=== PATIENT | female | born 1935 | race Caucasian/White ===

== ENCOUNTER 2017-04-17 20:30 | Emergency (ER) | payer MEDICARE, OTHER ==
[~2017-04-17] VITALS: Ht 152.4 cm; Wt 58.1 kg
[~2017-04-17 20:30] MED LIST: FOSAMAX PO; LEVO88TA2 PO; OMEP20CA10 PO; SUMA100T PO
--- NOTE | 2017-04-17 21:16 | NUR ---
Pt ambulated to room with steady gait. Pt c/o right side headache since this morning. Pt seen by Dr. Leonard. Pt medicated for discomfort, will monitor for effects of medication. Pt resting in position of comfort for self. Pt to be discharge home once son arrives.
--- NOTE | 2017-04-17 21:55 | NUR ---
Pt sts no change in pain from previous medication. Dr. Leonard notified. Per Dr. Leonard pt to not received any more narcotics.
--- NOTE | 2017-04-17 22:09 | NUR ---
Pt conts to c/o pain. Dr. Leonard aware. No new orders given. Pt stable for discharge per MD. Pt and family given ACI. Both verbalized understanding of dc instructions. Pt wheeled out of ER via w/c
[2017-04-17 22:15] VITALS: BP 110/59
== END 2017-04-17 22:15 | disposition home or self-care (01) ==
LOC: ER 20:41
DX: G43.909 Migraine, unspecified, not intractable, without status migrainosus (principal); K21.9 Gastro-esophageal reflux disease without esophagitis; Z88.6 Allergy status to analgesic agent
CPT/HCPCS: A4663; J1170; J2550; Q0163

== ENCOUNTER 2017-04-21 20:14 | Emergency (ER) | payer MEDICARE, OTHER ==
[~2017-04-21] VITALS: Ht 167.6 cm; Wt 58.1 kg
[2017-04-21 20:57] LABS: BASOPHILS % (AUTO) 0.1 % (0.0-2.0); EOSINOPHILS % (AUTO) 0.2 % (0.0-7.0); HEMATOCRIT 39.9 % (37-47); HEMOGLOBIN 13.3 G/DL (12.0-16.0); LYMPHOCYTES # (AUTO) 1.1 K/UL (0.8-4.8); LYMPHOCYTES % (AUTO) 19.3 % (20.5-51.5); MEAN CORPUSCULAR HEMOGLOBIN 29.6 UUG (27.0-31.0); MEAN CORPUSCULAR HGB CONC 33 g/dL (32.0-37.0); MEAN CORPUSCULAR VOLUME 88.6 FL (81.0-99.0); MONOCYTES # (AUTO) 0.2 K/UL (0.1-1.30); MONOCYTES % (AUTO) 3.4 % (0.0-11.0); NEUTROPHILS # (AUTO) 4.2 K/UL (1.8-8.9); PLATELET COUNT (AUTO) 191 K/UL (150-450); WHITE BLOOD COUNT (AUTO) 5.5 K/UL (4.0-11.2)
[2017-04-21 21:02] LABS: ALANINE AMINOTRANSFERASE 20 U/L (14-59); ALKALINE PHOSPHATASE 64 U/L (50-136); ASPARTATE AMINOTRANSFERASE 12 U/L (15-37); BILIRUBIN,DIRECT 0.1 mg/dL (0.0-0.2); BILIRUBIN,TOTAL 0.4 mg/dL (0.2-1.0); CARBON DIOXIDE 27 mmol/L (21-32); CHLORIDE 108 mmol/L (98-107); GLUCOSE 127 mg/dL (74-106); LIPASE 142 U/L (73-393); UREA NITROGEN, BLOOD 19 mg/dL (7-18)
--- NOTE | 2017-04-21 21:25 | NUR ---
Patient provided urine specimen, sent to laboratory. However, patient states she feels improved and would like to go home. BHUMID notified.
[2017-04-21 21:31] VITALS: BP 118/72
--- NOTE | 2017-04-21 21:31 | NUR ---
Patient discharged to home in stable conditon. Written and verbal after care instructions given. Patient verbalizes understanding of instructions.
== END 2017-04-21 21:32 | disposition home or self-care (01) ==
LOC: ER 20:14
DX: K52.9 Noninfective gastroenteritis and colitis, unspecified (principal); G43.909 Migraine, unspecified, not intractable, without status migrainosus; K21.9 Gastro-esophageal reflux disease without esophagitis; Z88.6 Allergy status to analgesic agent
CPT/HCPCS: 36415; 83690; 85025; A4663; J1170; J2405; J7030

== ENCOUNTER 2017-07-07 10:49 | Emergency (ER) | payer MEDICARE, OTHER ==
[~2017-07-07] VITALS: Ht 167.6 cm; Wt 56.7 kg
[2017-07-07] MEDS ORDERED: SIMV20TA2 PO (11:00)
[2017-07-07 11:46] LABS: BASOPHILS % (AUTO) 0.3 % (0.0-2.0); EOSINOPHILS % (AUTO) 0.4 % (0.0-7.0); HEMATOCRIT 37.1 % (31.2-41.9); HEMOGLOBIN 12.9 g/dL (10.9-14.3); LYMPHOCYTES # (AUTO) 1.8 K/uL (20.0-40.0); LYMPHOCYTES % (AUTO) 27.9 % (20.5-51.5); MEAN CORPUSCULAR HEMOGLOBIN 30.9 uug (24.7-32.8); MEAN CORPUSCULAR HGB CONC 35 g/dL (32.3-35.6); MEAN CORPUSCULAR VOLUME 88.9 fL (75.5-95.3); MONOCYTES # (AUTO) 0.4 K/uL (2.0-10.0); MONOCYTES % (AUTO) 6.5 % (0.0-11.0); NEUTROPHILS # (AUTO) 4.1 K/uL (1.8-8.9); NEUTROPHILS % (AUTO) 64.9 % (38.5-71.5); PLATELET COUNT (AUTO) 184 K/uL (179-408); RED BLOOD CELL COUNT(AUTO) 4.17 MIL/uL (3.63-4.92); WHITE BLOOD COUNT (AUTO) 6.3 K/uL (3.8-11.8)
[2017-07-07 12:01] LABS: CARBON DIOXIDE 28 mmol/L (21-32); CHLORIDE 108 mmol/L (98-107); GLUCOSE 93 mg/dL (74-106); POTASSIUM 4.1 mmol/L (3.5-5.1); UREA NITROGEN, BLOOD 24 mg/dL (7-18)
[2017-07-07 12:13] LABS: ALANINE AMINOTRANSFERASE 20 U/L (14-59); ALKALINE PHOSPHATASE 119 U/L (50-136); ASPARTATE AMINOTRANSFERASE 21 U/L (15-37); BILIRUBIN,DIRECT 0.1 mg/dL (0.0-0.2); BILIRUBIN,TOTAL 0.3 mg/dL (0.2-1.0); TOTAL PROTEIN, SERUM 6.5 g/dL (6.4-8.2)
[2017-07-07 12:37] VITALS: BP 114/60
--- NOTE | 2017-07-07 12:37 | NUR ---
Patient discharged to home in stable conditon. Written and verbal after care instructions given. Patient verbalizes understanding of instructions.
== END 2017-07-07 12:38 | disposition home or self-care (01) ==
LOC: ER 10:49
DX: J20.9 Acute bronchitis, unspecified (principal); K21.9 Gastro-esophageal reflux disease without esophagitis; Z88.6 Allergy status to analgesic agent
CPT/HCPCS: 36415; 71010; 80048; 80076; 83605; 83880; 84484; 85025; 85730; 87040 ×2; 87400; 93005; 99285; A4663; 70030-TC

== ENCOUNTER 2017-10-27 13:06 | Emergency (ER) | payer MEDICARE, OTHER ==
[~2017-10-27] VITALS: Ht 162.6 cm; Wt 58.5 kg
[~2017-10-27 13:06] MED LIST changes: +SIMV20TA2 PO
[2017-10-27] MEDS ORDERED: diphenhydrAMINE 50 MG/1 ML VIAL IM ONE (13:30)
[2017-10-27] MEDS ORDERED: PROCHLORPERAZINE EDISYLATE 10 MG/2 ML VIAL IM ONE ×3 (13:30→15:15)
[2017-10-27] MEDS ORDERED: diphenhydrAMINE 50 MG/1 ML VIAL ONE (13:33)
[2017-10-27] MEDS ORDERED: PROCHLORPERAZINE EDISYLATE 10 MG/2 ML VIAL ONE ×3 (13:33→15:19)
--- NOTE | 2017-10-27 15:20 | NUR ---
Patient discharged to home in stable conditon. Written and verbal after care instructions given. Patient verbalizes understanding of instructions.PT SAYS HEADACHE HAS COME DOWN TO TOLERABLE LEVEL OF 3/10. PT WANTS TO GO HOME. SISTER IS COMING TO CLAIMS EXAMINER THE PT.PT WALKS IN STEADY GAIT.
[2017-10-27 15:23] VITALS: BP 109/51
== END 2017-10-27 15:24 | disposition home or self-care (01) ==
LOC: ER 13:07
DX: G43.909 Migraine, unspecified, not intractable, without status migrainosus (principal); K21.9 Gastro-esophageal reflux disease without esophagitis; Z90.710 Acquired absence of both cervix and uterus; Z88.6 Allergy status to analgesic agent; Z79.899 Other long term (current) drug therapy
CPT/HCPCS: A4663; J0780; J1200

== ENCOUNTER 2019-02-23 17:58 | Emergency (ER) | payer MEDICARE, OTHER ==
[~2019-02-23] VITALS: Ht 167.6 cm; Wt 59.9 kg
[~2019-02-23 17:58] MED LIST changes: -OMEP20CA10 PO; +OMEP20CA11 PO
--- NOTE | 2019-02-23 18:38 | NUR ---
Dr. Villarreal at the bedside for MSE.
[2019-02-23] MEDS ORDERED: diphenhydrAMINE 25 MG CAP PO ONE ×2 (18:45→18:51)
[2019-02-23] MEDS ORDERED: TDAP DIPH,PERTUSS,TET VAC/PF 0.5 ML DISP.SYRIN IM ONE ×2 (18:45→18:52)
[2019-02-23] MEDS ORDERED: SULFAMETH/TRIMETH 800/160 MG TABLET PO ONE (18:45)
[2019-02-23] MEDS ORDERED: SULFAMETH/TRIMETH 800/160 MG TABLET ONE (18:51)
--- NOTE | 2019-02-23 19:01 | NUR ---
Full SBAR report given to WILL Gore.
--- NOTE | 2019-02-23 19:13 | NUR ---
Patient discharged to home in stable conditon. Written and verbal after care instructions given. Patient verbalizes understanding of instructions. Pt ambulated out of ER with steady gait, no acute signs of distress, VSS, all belongings taken.
[2019-02-23 19:15] VITALS: BP 128/68
== END 2019-02-23 19:16 | disposition home or self-care (01) ==
LOC: ER 18:01
DX: S60.862A Insect bite (nonvenomous) of left wrist, initial encounter (principal); E78.00 Pure hypercholesterolemia, unspecified; K21.9 Gastro-esophageal reflux disease without esophagitis; F32.9 Major depressive disorder, single episode, unspecified; Z90.710 Acquired absence of both cervix and uterus; Z88.8 Allergy status to other drugs, medicaments and biological substances; Z79.899 Other long term (current) drug therapy; W57.XXXA Bitten or stung by nonvenomous insect and other nonvenomous arthropods, initial encounter; Y93.89 Activity, other specified; Y92.89 Other specified places as the place of occurrence of the external cause; Y99.8 Other external cause status
CPT/HCPCS: 90471; 90715; 99283; Q0163; A4663

== ENCOUNTER 2019-04-15 11:02 | Emergency (ER) | payer MEDICARE, OTHER ==
[~2019-04-15] VITALS: Ht 167.6 cm; Wt 61.2 kg
[2019-04-15] MEDS: IV NORMAL SALINE 1000 ML BAG IV ONE (12:30)
[2019-04-15 13:00] LABS: *BILIRUBIN,URIN NEGATIVE (NEGATIVE); *CLARITY,URINE CLEAR (CLEAR); *COLOR,URINE YELLOW (YELLOW); *KETONES,URINE NEGATIVE (NEGATIVE); *UROBILINOGEN,URINE 0.2 E.U./dl (NORMAL); LEUKOCYTE ESTERASE ,URINE TRACE (NEGATIVE); NITRITE, URINE NEGATIVE (NEGATIVE); PH,URINE 7.5 (5.0-8.0); UGLUCOSE NEGATIVE (NEGATIVE)
[2019-04-15 13:03] LABS: POTASSIUM 4.1 mmol/L (3.5-5.1)
[2019-04-15 13:08] LABS: BILIRUBIN,DIRECT 0.1 mg/dL (0.0-0.2); BILIRUBIN,TOTAL 0.4 mg/dL (0.2-1.0); TOTAL PROTEIN, SERUM 6.8 g/dL (6.4-8.2)
[2019-04-15 13:10] LABS: BASOPHILS % (AUTO) 0.3 % (0.0-2.0); EOSINOPHILS # (AUTO) 0.1 K/uL (0.0-0.7); EOSINOPHILS % (AUTO) 1.3 % (0.0-7.0); HEMATOCRIT 41.4 % (31.2-41.9); HEMOGLOBIN 13.9 g/dL (10.9-14.3); LYMPHOCYTES # (AUTO) 2.2 K/uL (20.0-40.0); LYMPHOCYTES % (AUTO) 41.4 % (20.5-51.5); MEAN CORPUSCULAR HEMOGLOBIN 30.7 uug (24.7-32.8); MEAN CORPUSCULAR HGB CONC 34 g/dL (32.3-35.6); MEAN CORPUSCULAR VOLUME 91.6 fL (75.5-95.3); MONOCYTES # (AUTO) 0.4 K/uL (2.0-10.0); NEUTROPHILS # (AUTO) 2.6 K/uL (1.8-8.9); PLATELET COUNT (AUTO) 191 K/uL (179-408); RED BLOOD CELL COUNT(AUTO) 4.52 MIL/uL (3.63-4.92); WHITE BLOOD COUNT (AUTO) 5.3 K/uL (3.8-11.8)
[2019-04-15 13:24] LABS: *BLOOD, URINE SMALL (NEGATIVE); RBC,URINE 0-3 /HPF (0-3)
[2019-04-15 13:25] LABS: BACTERIA,URINE FEW /HPF (NONE SEEN); SQUAMOUS EPITHELIAL CELL,UR FEW /HPF (NONE SEEN)
[2019-04-15] MEDS ORDERED: DIATR MEGLU/DIATRIZOATE SODIUM 30 ML SOLUTION ONE (13:59)
--- NOTE | 2019-04-15 14:15 | NUR ---
Patient provided with instructions for oral contrast to be taken within 60 minutes.
[2019-04-15] MEDS: DIATR MEGLU/DIATRIZOATE SODIUM 120 ML BOTTLE PO ONE (15:00)
[2019-04-15] MEDS ORDERED: SWABABLE VALVE TRANSFER SET EA MC ONE (15:34)
[2019-04-15] MEDS ORDERED: IOHEXOL 300MG/ML 100 ML INFUS..BTL ONE (15:34)
[2019-04-15] MEDS ORDERED: IV NORMAL SALINE 250 ML IV ONE (15:34)
[2019-04-15 17:10] VITALS: BP 135/65
== END 2019-04-15 17:12 | disposition home or self-care (01) ==
LOC: ER 11:02
DX: R10.13 Epigastric pain (principal); R42 Dizziness and giddiness; R00.2 Palpitations; E78.00 Pure hypercholesterolemia, unspecified; F32.9 Major depressive disorder, single episode, unspecified; Z90.710 Acquired absence of both cervix and uterus; Z88.8 Allergy status to other drugs, medicaments and biological substances; Z79.899 Other long term (current) drug therapy
CPT/HCPCS: 36415; 71045; 74177; 80048; 80076; 81000; 81001; 83690; 84484; 85025; 85730; 87086; 96360; 96361; 99284; Q9963; Q9967; 70030-TC; A4663; J7030; J7050

== ENCOUNTER 2019-12-21 17:54 | Emergency (ER) | payer MEDICARE, OTHER ==
[~2019-12-21] VITALS: Ht 165.1 cm; Wt 61.2 kg
[~2019-12-21 17:54] MED LIST changes: -FOSAMAX PO; -OMEP20CA11 PO; +OMEP20CA15 PO
--- NOTE | 2019-12-21 18:33 | NUR ---
DR SHAVER AT BEDSIDE FOR EVAL. PATIENT IS A/A/O X3 IN NO DISTRESS.
[2019-12-21] MEDS ORDERED: ONDANSETRON ODT 4 MG TAB.RAPDIS ONE (18:55)
[2019-12-21] MEDS ORDERED: HYDROMORPHONE HCL 2 MG TABLET ONE (18:56)
--- NOTE | 2019-12-21 18:56 | NUR ---
HAND OFF REPORT TO LAURYN SOLIS
[2019-12-21] MEDS ORDERED: HYDROMORPHONE HCL 2 MG TABLET PO ONE (19:00)
[2019-12-21] MEDS ORDERED: ONDANSETRON ODT 4 MG TAB.RAPDIS SL ONE (19:00)
[2019-12-21] MEDS ORDERED: DEXAMETHASONE SOD PHOSPHATE 10 MG INJ ONE (19:07)
--- NOTE | 2019-12-21 19:12 | NUR ---
INSTRUCTED PATIENT NOT TO DRIVE AND [employer] (RX)
--- NOTE | 2019-12-21 19:12 | NUR ---
DC, RX AND F/U INSTRUCTIONS GIVEN AND EXPLAINED TO PATIENT WHO STATES SHE UNDERSTANDS ALL INSTRUCTIONS. [employer] UT[employer]ED (KELLY CRUZ)
[2019-12-21] MEDS ORDERED: DEXAMETHASONE SOD PHOSPHATE 4 MG INJ IM ONE (19:15)
== END 2019-12-21 19:13 | disposition home or self-care (01) ==
LOC: ER 17:54
DX: G43.909 Migraine, unspecified, not intractable, without status migrainosus (principal); Z90.710 Acquired absence of both cervix and uterus; E78.00 Pure hypercholesterolemia, unspecified; Z79.899 Other long term (current) drug therapy
CPT/HCPCS: 96372; 99283; J1100; A4663; Q0162

== ENCOUNTER 2021-01-30 21:28 | Emergency (ER) | payer MEDICARE, OTHER ==
[~2021-01-30] VITALS: Ht 165.1 cm; Wt 62.1 kg
--- NOTE | 2021-01-30 21:45 | NUR ---
Pt came from home, bib son for headache, sob, nausea for past 10 days. Pt had a fall 2 months ago, has broken L clavicle and rib fracture.
[2021-01-30 22:23] LABS: HEMATOCRIT 41.8 % (31.2-41.9); MEAN CORPUSCULAR HEMOGLOBIN 30.4 uug (24.7-32.8); MEAN CORPUSCULAR VOLUME 90.4 fL (75.5-95.3); PLATELET COUNT (AUTO) 204 K/uL (179-408)
--- NOTE | 2021-01-30 22:25 | NUR ---
Pt. reports she has headache, dizziness and her son reports her balance has been impaired. Fall precautions in place, vss. Will continue to monitor. Dr. Garner made aware.
[2021-01-30 22:28] LABS: CREATININE 1.1 mg/dL (0.6-1.3); POTASSIUM 3.4 mmol/L (3.5-5.1)
[2021-01-30] MEDS ORDERED: METOCLOPRAMIDE HCL 10 MG/2 ML VIAL IV ONE (22:30)
[2021-01-30 22:40] LABS: BILIRUBIN,DIRECT 0.1 mg/dL (0.0-0.2); BILIRUBIN,TOTAL 0.4 mg/dL (0.2-1.0); TOTAL PROTEIN, SERUM 7.1 g/dL (6.4-8.2)
[2021-01-30] MEDS ORDERED: METOCLOPRAMIDE HCL 10 MG/2 ML VIAL ONE (22:57)
--- NOTE | 2021-01-30 23:34 | NUR ---
Pt taken to CT
--- NOTE | 2021-01-30 23:45 | NUR ---
pt returned from ct
[2021-01-31] MEDS ORDERED: MORPHINE SULFATE 4 MG/1 ML DISP.SYRIN IV ONE (00:30)
[2021-01-31 00:36] LABS: *BILIRUBIN,URIN NEGATIVE (NEGATIVE); *CLARITY,URINE CLEAR (CLEAR); *COLOR,URINE YELLOW (YELLOW); *KETONES,URINE NEGATIVE (NEGATIVE); *UROBILINOGEN,URINE 0.2 E.U./dl (NORMAL); LEUKOCYTE ESTERASE ,URINE 2+ (NEGATIVE); NITRITE, URINE NEGATIVE (NEGATIVE); UGLUCOSE NEGATIVE (NEGATIVE)
[2021-01-31 00:37] LABS: *BLOOD, URINE TRACE (NEGATIVE)
[2021-01-31] MEDS ORDERED: MORPHINE SULFATE 4 MG/1 ML DISP.SYRIN ONE (00:40)
[2021-01-31 00:42] LABS: BACTERIA,URINE FEW /HPF (NONE SEEN); RBC,URINE 0-3 /HPF (0-3); SQUAMOUS EPITHELIAL CELL,UR MODERATE /HPF (NONE SEEN)
[2021-01-31] MEDS ORDERED: METOCLOPRAMIDE HCL 10 MG/2 ML VIAL IV ONE (01:45)
[2021-01-31] MEDS ORDERED: HYDROMORPHONE 1 MG/1 ML DISP.SYRIN IV ONE (01:45)
[2021-01-31] MEDS ORDERED: HYDROMORPHONE 1 MG/1 ML DISP.SYRIN ONE (01:51)
[2021-01-31] MEDS ORDERED: METOCLOPRAMIDE HCL 10 MG/2 ML VIAL ONE (01:52)
--- NOTE | 2021-01-31 02:05 | NUR ---
Patient discharged to home in stable condition. Written and verbal after care instructions given. Patient verbalizes understanding of instructions. Stressed follow up or return to ER for worsening s/s. Pt driven home by her son. Pt walks with steady gait. Denies dizziness, vision changes. No signs of distress, vss. All belongings taken, provided with copies of lab and CT results, IV site discontinued.
[2021-01-31 02:09] LABS: *BILIRUBIN,URIN NEGATIVE (NEGATIVE); *CLARITY,URINE CLEAR (CLEAR); *KETONES,URINE NEGATIVE (NEGATIVE); *UROBILINOGEN,URINE 0.2 E.U./dl (NORMAL); LEUKOCYTE ESTERASE ,URINE 2+ (NEGATIVE); NITRITE, URINE NEGATIVE (NEGATIVE); UGLUCOSE NEGATIVE (NEGATIVE)
[2021-01-31 02:13] VITALS: BP 15/85
[2021-01-31 02:14] LABS: *BLOOD, URINE TRACE (NEGATIVE); *COLOR,URINE STRAW (YELLOW)
[2021-01-31 02:16] LABS: BACTERIA,URINE FEW /HPF (NONE SEEN); RBC,URINE 0-3 /HPF (0-3); SQUAMOUS EPITHELIAL CELL,UR MODERATE /HPF (NONE SEEN)
== END 2021-01-31 02:14 | disposition home or self-care (01) ==
LOC: ER 21:29
DX: G43.909 Migraine, unspecified, not intractable, without status migrainosus (principal); Z90.710 Acquired absence of both cervix and uterus; E78.00 Pure hypercholesterolemia, unspecified; E03.9 Hypothyroidism, unspecified; Z79.899 Other long term (current) drug therapy; Z79.890 Hormone replacement therapy
CPT/HCPCS: 36415; 70450; 71045; 80048; 80076; 81001; 83880; 84484; 85025; 87086; 93005; 96374; 96375; 96376; 99285; J1170; J2270; J2765 ×2; 70030-TC; A4663

== ENCOUNTER 2021-09-13 19:13 | Emergency (ER) | payer MEDICARE, OTHER ==
[~2021-09-13] VITALS: Ht 165.1 cm; Wt 63.5 kg
[2021-09-13] MEDS ORDERED: ONDANSETRON ODT 4 MG TAB.RAPDIS SL ONE (20:00)
[2021-09-13] MEDS ORDERED: HYDROMORPHONE 1 MG/1 ML DISP.SYRIN IM ONE ×2 (20:00→21:15)
[2021-09-13] MEDS ORDERED: HYDROMORPHONE 1 MG/1 ML DISP.SYRIN ONE ×2 (20:19→21:28)
[2021-09-13] MEDS ORDERED: ONDANSETRON ODT 4 MG TAB.RAPDIS ONE (20:19)
[2021-09-13] MEDS ORDERED: ONDA4TAB5 PO (22:01)
[2021-09-13] MEDS ORDERED: HYDR-3980 PO (22:01)
--- NOTE | 2021-09-13 23:10 | NUR ---
Patient discharged to home in stable condition. Written and verbal after care instructions given. Patient verbalizes understanding of instructions. Stressed follow up or return to ER for worsening s/s.pt ambulates with steady gait. no sob. no chest pain. accompanied by son.
[2021-09-13 23:11] VITALS: BP 111/52
[2021-09-13] MEDS ORDERED: OXYCODONE/APAP 5-325 MG TABLET ONE (23:14)
[2021-09-13] MEDS ORDERED: OXYCODONE/APAP 5-325 MG TABLET PO ONE (23:15)
== END 2021-09-13 23:13 | disposition home or self-care (01) ==
LOC: ER 19:14
DX: G43.909 Migraine, unspecified, not intractable, without status migrainosus (principal); E03.9 Hypothyroidism, unspecified; Z90.710 Acquired absence of both cervix and uterus; Z79.890 Hormone replacement therapy; K29.70 Gastritis, unspecified, without bleeding; Z79.899 Other long term (current) drug therapy
CPT/HCPCS: 96372 ×2; 99284; J1170 ×2; A4663; Q0162

== ENCOUNTER 2021-10-19 23:25 | Emergency (ER) | payer MEDICARE, OTHER ==
[~2021-10-19] VITALS: Ht 165.1 cm; Wt 63.5 kg
[~2021-10-19 23:25] MED LIST changes: +HYDR-3980 PO; +ONDA4TAB5 PO
--- NOTE | 2021-10-20 00:08 | NUR ---
CALLED [facility] TO [facility] PATIENT TO [place] [facility] SCAN DUE TO CT SCAN [facility] AT [place]. ETA IS 60MINS.
[2021-10-20] MEDS ORDERED: PIPERACILLIN SODIUM/TAZOBACTAM 3.375 G in IV DEXTROSE 5% 50 ML IV ONE (00:15)
[2021-10-20] MEDS ORDERED: MORPHINE SULFATE 2 MG/1 ML DISP.SYRIN IV ONE (00:15)
[2021-10-20] MEDS ORDERED: IV NS 1000 ML 1,000 ML IV ONE (00:15)
[2021-10-20 00:22] LABS: HEMATOCRIT 41.5 % (31.2-41.9); MEAN CORPUSCULAR HEMOGLOBIN 30.5 uug (24.7-32.8); MEAN CORPUSCULAR VOLUME 87.9 fL (75.5-95.3); PLATELET COUNT (AUTO) 200 K/uL (179-408)
[2021-10-20 00:39] LABS: CARBON DIOXIDE 27 mmol/L (21-32); CHLORIDE 105 mmol/L (98-107); GLUCOSE 105 mg/dL (74-106); POTASSIUM 3.6 mmol/L (3.5-5.1); UREA NITROGEN, BLOOD 18 mg/dL (7-18)
[2021-10-20] MEDS ORDERED: MORPHINE SULFATE 2 MG/1 ML DISP.SYRIN ONE (00:43)
[2021-10-20] MEDS ORDERED: PIPERACILLIN/TAZOBACTAM/D5W 50 ML IV ONE (00:43)
[2021-10-20 00:45] LABS: *BILIRUBIN,URIN NEGATIVE (NEGATIVE); *BLOOD, URINE 2+ (NEGATIVE); *CLARITY,URINE CLEAR (CLEAR); *COLOR,URINE YELLOW (YELLOW); *KETONES,URINE TRACE (NEGATIVE); *UROBILINOGEN,URINE 0.2 E.U./dl (NORMAL); LEUKOCYTE ESTERASE ,URINE TRACE (NEGATIVE); NITRITE, URINE NEGATIVE (NEGATIVE); UGLUCOSE NEGATIVE (NEGATIVE)
[2021-10-20 00:47] LABS: ALANINE AMINOTRANSFERASE 20 U/L (14-59); ALKALINE PHOSPHATASE 106 U/L (50-136); ASPARTATE AMINOTRANSFERASE 13 U/L (15-37); BILIRUBIN,DIRECT 0.1 mg/dL (0.0-0.2); BILIRUBIN,TOTAL 0.7 mg/dL (0.2-1.0); LIPASE 95 U/L (73-393); TOTAL PROTEIN, SERUM 7.1 g/dL (6.4-8.2)
[2021-10-20 00:59] LABS: BACTERIA,URINE FEW /HPF (NONE SEEN); SQUAMOUS EPITHELIAL CELL,UR FEW /HPF (NONE SEEN)
--- NOTE | 2021-10-20 01:51 | NUR ---
GAVE SBAR REPORT TO [facility] WHO WILL TAKE PATIENT TO [facility] FOR CT SCAN.
--- NOTE | 2021-10-20 03:08 | NUR ---
pt returned from CT.
[2021-10-20] MEDS ORDERED: AMOXICILLIN-CLAVUL 875-125MG TABLET ONE (06:27)
[2021-10-20] MEDS ORDERED: ACET1TAB23 PO (06:27)
[2021-10-20] MEDS ORDERED: AMOX-430 PO (06:29)
[2021-10-20] MEDS ORDERED: AMOXICILLIN-CLAVUL 875-125MG TABLET PO ONE (06:30)
--- NOTE | 2021-10-20 06:36 | NUR ---
Patient discharged to home in stable condition. Written and verbal after care instructions given. Patient verbalizes understanding of instructions. Stressed follow up or return to ER for worsening s/s. pt ambulated with steady gait. denies pain. no SOB. no chest pain.
[2021-10-20 06:38] VITALS: BP 115/61
== END 2021-10-20 06:38 | disposition home or self-care (01) ==
LOC: ER 23:25
DX: K57.32 Diverticulitis of large intestine without perforation or abscess without bleeding (principal); R94.31 Abnormal electrocardiogram [ECG] [EKG]; E03.9 Hypothyroidism, unspecified; E78.00 Pure hypercholesterolemia, unspecified; Z90.710 Acquired absence of both cervix and uterus
CPT/HCPCS: 36415; 74176; 80048; 80076; 81001; 83605; 83690; 84484; 85025; 87040 ×2; 87086; 93005; 96365; 96375; 99285; J2270; J2543

== ENCOUNTER 2025-05-24 00:20 | Emergency (ER) | payer MEDICARE, OTHER ==
[~2025-05-24] VITALS: Ht 162.6 cm; Wt 63.5 kg
[~2025-05-24 00:20] MED LIST changes: +ACET1TAB23 PO; +AMOX-430 PO
[2025-05-24] MEDS ORDERED: ONDANSETRON 4 MG/2 ML VIAL ONE (01:10)
[2025-05-24] MEDS ORDERED: HYDROMORPHONE 1 MG/1 ML DISP.SYRIN ONE ×2 (01:10→01:44)
[2025-05-24 01:14] LABS: PLATELET COUNT (AUTO) 234 K/uL (179-408); RED BLOOD CELL COUNT(AUTO) 5.13 MIL/uL (3.63-4.92); RED CELL DISTRIBUTION WIDTH 14.3 % (12.3-17.7); WHITE BLOOD COUNT (AUTO) 10.6 K/uL (3.8-11.8)
[2025-05-24] MEDS: ONDANSETRON 4 MG/2 ML VIAL IV ONE (01:17)
[2025-05-24] MEDS: HYDROMORPHONE 1 MG/1 ML DISP.SYRIN IV ONE ×2 (01:17→01:47)
[2025-05-24 01:20] LABS: CREATININE 1.0 mg/dL (0.6-1.3); SODIUM SERUM 141 mmol/L (136-145); UREA NITROGEN, BLOOD 20 mg/dL (7-18)
[2025-05-24 02:08] LABS: *BILIRUBIN,URIN NEGATIVE (NEGATIVE); *BLOOD, URINE 2+ (NEGATIVE); *CLARITY,URINE HAZY (CLEAR); *COLOR,URINE YELLOW (YELLOW); *KETONES,URINE NEGATIVE (NEGATIVE); *PROTEIN,URINE NEGATIVE (NEGATIVE); *UROBILINOGEN,URINE 0.2 E.U./dl (NORMAL); LEUKOCYTE ESTERASE ,URINE TRACE (NEGATIVE); NITRITE, URINE NEGATIVE (NEGATIVE); UGLUCOSE NEGATIVE (NEGATIVE)
[2025-05-24 02:14] LABS: SQUAMOUS EPITHELIAL CELL,UR MODERATE /HPF (NONE SEEN)
[2025-05-24] MEDS ORDERED: HYDR-4209 PO ×2 (02:22→11:42)
[2025-05-24 02:34] VITALS: BP 128/66
[2025-05-24 02:35] VITALS: BP 128/66; TEMP 98; O2SAT 99
== END 2025-05-24 02:36 | disposition home or self-care (01) ==
LOC: ER 00:35
DX: M54.41 Lumbago with sciatica, right side (principal); R35.0 Frequency of micturition; E03.9 Hypothyroidism, unspecified; E78.00 Pure hypercholesterolemia, unspecified; I51.9 Heart disease, unspecified; M41.9 Scoliosis, unspecified; Z79.890 Hormone replacement therapy; Z79.899 Other long term (current) drug therapy; Z87.19 Personal history of other diseases of the digestive system; Z88.6 Allergy status to analgesic agent; Z90.710 Acquired absence of both cervix and uterus; Z96.653 Presence of artificial knee joint, bilateral
CPT/HCPCS: 99285; 96374; 96375; 80048; 81001; 85025; 87086; 36415; 72072; 72100; J2405; J1171 ×2; A4606; A4663